=== PATIENT | male | born 1955 ===

== ENCOUNTER 2017-04-30 10:44 | Day surgery (SDC) | payer MEDICAID ==
[2017-04-24 09:33] VITALS: BMI 24.3
[2017-04-30 11:21] VITALS: RESP 18
[2017-04-30] MEDS ORDERED: Propofol 10 mg/ml Inj (20 ML) ONE (13:13)
[2017-04-30] MEDS ORDERED: Lactated Ringer's 1,000 ML IV ONE ×2 (13:29→14:00)
[2017-04-30] MEDS ORDERED: Midazolam 2 MG/2 ML VIAL ONE (13:34)
[2017-04-30] MEDS ORDERED: Lactated Ringer's 1,000 ML IV SCH (14:30)
[2017-04-30] MEDS: HYDROmorphone 0.5 mg/0.5 ml ISec IVP PRN ×2 (14:35→15:35)
--- NOTE | 2017-04-30 15:05 | PCM.SURG1 ---
Surgeon's Initial Post Op Note - Surgeon's Notes Surgeon: Rajeev Grove Worker: [id number] Type of Anesthesia: General Endo Pre-Operative Diagnosis: L reducible inguinal hernia Operative Findings: L reducible direct inguinal hernia Post-Operative Diagnosis: L reducible direct inguinal hernia Operation Performed: Left direct inguinal hernia repair with mesh Specimen/Specimens Removed: Cord lipoma Estimated Blood Loss: EBL {In ML}: 10 Blood Products Given: N/A Drains Used: No Drains Post-Op Condition: Good Date of Surgery/Procedure: 04/30/17 Time of Surgery/Procedure: 13:30
[2017-04-30] MEDS ORDERED: Oxycodone/Acetaminophen 5/325 mg Tab PO ONE (15:09)
[2017-04-30 17:01] VITALS: BP 126/78; PULSE 72; TEMP 97.6; O2SAT 100
--- NOTE | 2017-05-01 16:14 | OP ---
PROCEDURE DATE: 04/30/2017 SURGEON: Eleonora Boo MD RECYCLING MANAGER: Dr. Varghese. TYPE OF ANESTHESIA: General. ANESTHESIA ADMINISTERED BY: Dr. Melgar. PREOPERATIVE DIAGNOSIS: Left inguinal hernia. POSTOPERATIVE DIAGNOSIS: Left inguinal hernia. PROCEDURE: Left inguinal hernia repair with mesh. DESCRIPTION OF OPERATION: With the patient in the supine position under adequate general anesthesia, the left groin was prepped and draped in the usual sterile manner. A transverse incision was made in the left upper groin crease, taken down through the subcutaneous tissue and the external oblique layer was identified. There was noted to be significant fatty bulging through a widened external inguinal ring and the external oblique layer was opened from the external ring to the internal ring. The spermatic cord was identified. The proximal portion of the spermatic cord particularly was wide and fatty. The cord was dissected and elevated on a Jess drain at the level of the pubic tubercle and dissection of the cord revealed a small lateral lipoma with the primary swelling being beneath medial to the cord, representing direct herniation coming from medial to the cord structures and downward from beneath the transversalis fascial layer. This material was completely freed from the actual cord structures and reduced back above the inguinal floor. A size extra large ProLoop mesh was then positioned in the defect, which was again loss of inguinal floor rather than a well-formed defect and sutured superiorly to the transversalis fascia and inferiorly to the shelving edge of the inguinal ligament using interrupted 2-0 Prolene sutures to maintain the reduction of the hernia. When this had been completed, the flat mesh portion of the ProLoop hernia system was sutured close to the pubic tubercle and positioned beneath the cord and over the plug, initially with the previously placed sutures and with additional sutures fixing it to the shelving edge and to the transversalis fascia. The ends of the tails of the mesh were approximated laterally to the internal ring to narrow the ring and the external oblique was reapproximated over the cord using running suture of 2-0 Vicryl, subcutaneous tissues were approximated with a few 3-0 Vicryl interrupted sutures and closure was performed with running subcuticular suture of 4-0 Monocryl and Steri-Strips. Dry sterile dressings were applied. The patient tolerated the procedure well and transferred to recovery room in stable condition. Estimated blood loss for the procedure was 10 mL. Eleonora Boo MD [facility] # [id number]
--- NOTE | 2017-05-14 17:07 | CP.SDSHP ---
Same Day Surgery H & P - Allergies Allergies: Allergies Penicillins Allergy (Verified 04/24/17 09:33) DIZZINESS Short Stay Discharge - Short Stay Discharge Admitting Diagnosis/Reason for Visit: K40.9 Disposition: HOME/ ROUTINE Medications: oxyCODONE/Acetaminophen [Percocet 5/325 mg Tab] 1 tab PO Q4 PRN #14 tab PRN Reason: Pain, Moderate (4-7) Referrals: Ryder Lopez MD [Primary Care Provider] - Follow-up: Dr Boo's office, one week Additional Instructions (Diet, Activity): may remove dressing in 2 days; no heavy lifting Progress Note/Discharge Note with Instructions: Voiding freely, pain controlled. No swelling or bleeding. Stable postop
== END 2017-04-30 17:05 | disposition home or self-care (01) ==
LOC: H.OPSURG 10:44
PROVIDERS: ATTEND Specialist
DX: K40.90 Unilateral inguinal hernia, without obstruction or gangrene, not specified as recurrent (principal); E78.5 Hyperlipidemia, unspecified; Z87.891 Personal history of nicotine dependence
CPT/HCPCS: 49505; 88302; C1781; J1170; J2001; J2250; J2405; J2704; J3010; J7030; J7120